=== PATIENT | male | born 1960 | race Caucasian/White ===

== ENCOUNTER 2019-05-26 07:35 | Emergency (ER) | payer OTHER ==
[~2019-05-26] VITALS: Ht 170.2 cm; Wt 78.5 kg
[~2019-05-26 07:35] MED LIST: ETODOLAC400 MG PO; ETODOLAC500 M1 PO; NORFLEX100MG PO; ORPHENADRI30 MG/1 ML IJ; TORADOL60 MG IM
[2019-05-26] MEDS ORDERED: NORVASC5 MG (07:46)
[2019-05-26] MEDS ORDERED: OMEPRAZOLE MAGN20 MG (07:46)
[2019-05-26] MEDS ORDERED: ASPIR 8181 MG (07:47)
== END 2019-05-26 13:27 | disposition home or self-care (01) ==
LOC: ER 07:35 → CPU-OBS 07:41 → ER 13:27
DX: R07.89 Other chest pain (principal)
CPT/HCPCS: G0378; G0379; 93005

== ENCOUNTER 2019-05-28 16:18 | Emergency (ER) | payer OTHER ==
[~2019-05-28] VITALS: Ht 170.2 cm; Wt 78.5 kg
[~2019-05-28 16:18] MED LIST changes: +ASPIR 8181 MG; +NORVASC5 MG; +OMEPRAZOLE MAGN20 MG
== END 2019-05-28 19:35 | disposition home or self-care (01) ==
LOC: ER 16:18
DX: R20.0 Anesthesia of skin (principal); M79.622 Pain in left upper arm

== ENCOUNTER 2020-01-06 10:30 | Outpatient (CLI) | payer OTHER | END 2020-01-06 10:43 | disposition home or self-care (01) | LOC: NUCLEAR 10:30 | PROVIDERS: ATTEND General Practice | DX: R20.2 Paresthesia of skin (principal); I10 Essential (primary) hypertension; G89.29 Other chronic pain; M79.605 Pain in left leg; M79.604 Pain in right leg; Z13.89 Encounter for screening for other disorder ==